=== PATIENT | female | born 1945 | race African-American/Black ===

== ENCOUNTER 2017-09-02 18:15 | Emergency (ER) | payer MEDICARE ==
--- NOTE | 2017-09-02 19:43 | Emergency Department Report ---
ED General Adult HPI - General Chief complaint: Dyspnea/Respdistress Stated complaint: CHOKING Time Seen by Provider: 09/02/17 18:31 Source: patient, outpatient clerk Mode of arrival: Ambulatory Limitations: Language Barrier - History of Present Illness Initial comments: This is a 71-year-old female who is known to this provider previously. She is accompanied by her and a friend, Mr. Carlos Rabago. The patient indicates that she would not like a formal [place] data center manager, and authorizes and requests that Mr. Rabago translate for her. Approximately 2 hours Prior to arrival, the patient was eating fish. Patient can't recall what type of fish she ate. She indicates that the fish got stuck in the left part of her throat. She indicates that she has pain. She indicates that she has difficulty swallowing. She cannot describe the nature of the pain, radiation, or the qualitative nature of the pain. She indicates the pain worsens when she attempts to swallow. She indicates no relieving factors. No other complaints. -: Sudden Location: neck Quality: other (per hpi) Consistency: other (per hpi) Improves with: other (per hpi) Worsens with: other (per hpi) Associated Symptoms: other (neck pain, difficulty swallowing) - Related Data Home Medications Medication Instructions Recorded Confirmed Last Taken Amlodipine Besylate 5 mg PO QDAY 05/24/16 05/24/16 Unknown Meclizine HCl [Meclizine CHEW] 25 mg PO QDAY 05/24/16 05/24/16 Unknown Meloxicam 15 mg PO QDAY 05/24/16 05/24/16 Unknown Ondansetron HCl 4 mg PO Q8HR 05/24/16 05/24/16 Unknown Allergies Allergy/AdvReac Type Severity Reaction Status Date / Time No Known Allergies Allergy Unverified 05/24/16 11:56 ED Review of Systems ROS: Stated complaint: CHOKING Other details as noted in HPI Constitutional: denies: fever ENT: throat pain. denies: congestion Respiratory: cough Cardiovascular: denies: syncope Gastrointestinal: denies: vomiting Genitourinary: as per HPI Musculoskeletal: as per HPI Skin: as per HPI Neurological: as per HPI Psychiatric: as per HPI, anxiety ED Past Medical Hx - Past Medical History Previous Medical History?: No Additional medical history: unable to assess - Surgical History Past Surgical History?: No Additional Surgical History: unable to assess - Social History Smoking Status: Unknown if ever smoked Substance Use Type: None - Medications Home Medications: Home Medications Medication Instructions Recorded Confirmed Last Taken Type Amlodipine Besylate 5 mg PO QDAY 05/24/16 05/24/16 Unknown History Meclizine HCl [Meclizine CHEW] 25 mg PO QDAY 05/24/16 05/24/16 Unknown History Meloxicam 15 mg PO QDAY 05/24/16 05/24/16 Unknown History Ondansetron HCl 4 mg PO Q8HR 05/24/16 05/24/16 Unknown History ED Physical Exam - General Limitations: Language Barrier General appearance: alert, in no apparent distress - Head Head exam: Present: atraumatic, normocephalic - Eye Eye exam: Present: normal appearance, EOMI. Absent: nystagmus - ENT ENT exam: Present: normal exam, normal orophraynx, mucous membranes moist, normal external ear exam, other (the patient is speaking in full sentences to the data center manager. There is no stridor or trismus.) - Neck Neck exam: Present: normal inspection, full ROM. Absent: tenderness, meningismus - Respiratory Respiratory exam: Present: normal lung sounds bilaterally. Absent: respiratory distress - Cardiovascular Cardiovascular Exam: Present: regular rate, normal rhythm, normal heart sounds. Absent: bradycardia, tachycardia, irregular rhythm, systolic murmur, diastolic murmur, rubs, gallop - GI/Abdominal GI/Abdominal exam: Present: soft, normal bowel sounds. Absent: distended, tenderness, guarding, rebound, rigid, pulsatile mass - Extremities Exam Extremities exam: Present: normal inspection, full ROM, normal capillary refill , other (2+ pulses noted in the bilateral upper, lower extremities. Compartments soft. No long bony tenderness. The pelvis is stable.). Absent: pedal edema, calf tenderness - Back Exam Back exam: Present: normal inspection, full ROM. Absent: paraspinal tenderness , vertebral tenderness - Neurological Exam Neurological exam: Present: alert, other (there is no facial droop. The tongue is midline. Extraocular movements are intact bilaterally. Speaking in full sentences. 5 out of 5 strength upper, lower extremities bilaterally.) - Psychiatric Psychiatric exam: Present: anxious - Skin Skin exam: Present: warm, dry, intact, normal color. Absent: rash ED Course Vital Signs 09/02/17 09/02/1709/02/18 18:25 18:30 18:45 Temperature Pulse Rate 113 H 86 82 Respiratory 16 15 15 Rate Blood Pressure 156/84 134/63 138/69 Blood Pressure [Left] O2 Sat by Pulse 97 96 96 Oximetry 09/02/17 09/02/17 09/02/17 19:00 19:15 19:30 Temperature Pulse Rate 79 Respiratory 16 Rate Blood Pressure 127/62 142/75 148/76 Blood Pressure [Left] O2 Sat by Pulse 96 98 99 Oximetry 09/02/17 09/02/17 09/02/17 19:46 20:00 20:15 Temperature 97.6 F Pulse Rate 85 Respiratory 16 Rate Blood Pressure 169/73 169/73 133/69 Blood Pressure 124/77 [Left] O2 Sat by Pulse 98 98 98 Oximetry 09/02/17 09/02/17 09/02/17 20:30 20:48 21:00 Temperature Pulse Rate Respiratory Rate Blood Pressure 133/74 133/69 131/80 Blood Pressure [Left] O2 Sat by Pulse 100 100 93 Oximetry 09/02/17 09/02/17 09/02/17 21:15 21:30 21:46 Temperature Pulse Rate Respiratory Rate Blood Pressure 134/79 130/71 139/81 Blood Pressure [Left] O2 Sat by Pulse 99 97 96 Oximetry - Reevaluation(s) Reevaluation #1: 09/02/17 19:42 Differential diagnosis, including but not limited to: Foreign body in throat, fish bone, hypopharyngeal irritation Assessment and plan: 71-year-old female who is non-Mohawk speaking, we have a data center manager translating for her, who presents with complaints of fish bone in the lateral aspect of her throat. She speaks in her [place] tongue to the data center manager, and has no evidence of imminent airway collapse. There is no stridor. Plain film of the neck demonstrates no obvious retained foreign body. Patient would benefit from ENT consultation/evaluation. This hospital does not have otolaryngology available for consultation. We will transfer her to a hospital that can provide this service. Patient has a potential emergent medical issue which cannot be definitively managed at this hospital, therefore, will benefit from transfer. This was explained to the patient and her using a data center manager both of whom verbalized understanding according to the data center manager. 09/02/17 19:43 Reevaluation #2: 09/02/17 22:15 Case is discussed with otolaryngology accountant controller at [facility], Amy Ryena, he accepts the patient as an ER to ER transfer to the [facility]. Family is informed. ED Medical Decision Making - Radiology Data Radiology results: image reviewed interpreted by me: Soft tissue x-ray of the neck demonstrates no obvious foreign body. Critical care attestation.: If time is entered above; I have spent that time in minutes in the direct care of this critically ill patient, excluding procedure time. ED Disposition Clinical Impression: Globus sensation Disposition: DC/TX-02 [facility] Is pt being admited?: No Does the pt Need Aspirin: No Condition: Good Referrals: PRIMARY CARE, [Primary Care Provider] - 3-5 Days
[2017-09-02] MEDS ORDERED: LIDOCAINE VISCOUS 2% PO ONE (20:39)
--- NOTE | 2017-09-02 21:16 | XRay Report ---
FINAL REPORT PROCEDURE: XR NECK SOFT TISSUE TECHNIQUE: Soft tissue neck radiographs, 2 views, including AP and lateral. CPT 83072 HISTORY: choking/pt states bone stuck in throat COMPARISON: No prior studies are available for comparison. FINDINGS: Bone mineralization: Normal. Alignment: Normal. Soft tissues: Epiglottis and hypopharyngeal soft tissues normal. Foreign bodies: There are calcifications of the thyroid cartilage. No definite foreign body is seen. If symptoms persist, CT may be helpful. IMPRESSION: There is no acute soft tissue abnormality. The airway appears patent and midline. There are calcifications of the thyroid cartilage. No definite foreign body is seen. If symptoms persist, CT may be helpful.
[2017-09-03 00:25] VITALS: BP 130/87
== END 2017-09-02 23:50 | disposition short-term general hospital (02) ==
LOC: ED 18:15
DX: T17.228A Food in pharynx causing other injury, initial encounter (principal); X58.XXXA Exposure to other specified factors, initial encounter; Y93.89 Activity, other specified; Y99.8 Other external cause status; Y92.89 Other specified places as the place of occurrence of the external cause
CPT/HCPCS: 70360

== ENCOUNTER 2018-03-11 11:21 | Emergency (ER) | payer MEDICARE ==
[2018-03-11 12:06] LABS: Hematocrit 38.5 % (30.3-42.9); Hemoglobin 12.7 gm/dl (10.1-14.3); Mean Corpuscular HGB Conc 33 % (30-34); Mean Corpuscular Volume 87 fl (79-97); Platelet Count 315 K/mm3 (140-440); Red Blood Count 4.44 M/mm3 (3.65-5.03); Red Cell Distribution Width 14.2 % (13.2-15.2)
[2018-03-11 12:22] LABS: BUN/Creatinine Ratio 17; Blood Urea Nitrogen 15 mg/dL (7-17); Calcium 9.2 mg/dL (8.4-10.2); Hemolysis Index 25
--- NOTE | 2018-03-11 12:26 | Cat Scan Report ---
CT HEAD WITHOUT CONTRAST: HISTORY: Head pain, blurred vision. TECHNIQUE: Sequential 2.5mm CT images. COMPARISON: none. FINDINGS: Cerebral Parenchyma: Within normal limits. Cerebellum: Within normal limits. Brainstem: Within normal limits. Ventricles: Normal. Sella: Normal. Extra-axial spaces: Normal. Basal Cisterns: Normal. Intracranial Hemorrhage: None. Midline Shift: None. Calvarium: Normal. Sinuses: There is mild fluid or mucosal thickening in the ethmoid air cells and right frontal sinus. Mastoid Air Cells: Normal. Visualized Orbits: Normal. IMPRESSION: Cranial CT scan within normal limits. Mild sinus disease as described, likely chronic.
[2018-03-11] MEDS ORDERED: IBUPROFEN PO ONE (12:39)
--- NOTE | 2018-03-11 13:08 | Emergency Department Report ---
ED Headache HPI - General Chief Complaint: Headache Stated Complaint: WEAK/COLD/DIZZY/PAIN Time Seen by Provider: 03/11/18 12:26 - History of Present Illness Initial Comments: This is a 72-year-old female nontoxic, well nourished in appearance, no acute signs of distress presents to the ED with c/o of acute on chronic intermittent headaches. Patient describes headache as diffuse with level of 8 out of 10. Patient also stated has some dizziness with blurry vision and weakness. Patient denies thunderclap headache. Patient denies any radiation of pain. Patient denies any head trauma. Patient denies any visual changes. Patient denies worse headache. Patient stated that darkness makes headache better and bright lights make the headache worse. Patient denies any numbness, tingling, fever, chills, nausea, vomiting, chest pain, shortness of breath, stiff neck. Patient denies any facial drooping or one sided weakness. Patient denies any radiation of pain. Patient denies any allergies. Patients family member is present during exam, interview, and physical history for translation purposes. Timing/Duration: episodic Quality: mild, achy Head Injury Location: other (diffuse) Recent Head Trauma: no recent headache/trauma, occasional headaches Associated Symptoms: denies symptoms. denies: confusion, fatigue, facial pain, fever/chills, flushing, loss of consciousness, nausea/vomiting, nasal congestion, nasal drainage, numbness in legs/feet, rash, seizures, sinus infection, stiff neck, vision changes, weakness Allergies/Adverse Reactions: Allergies No Known Allergies Allergy (Unverified 05/24/16 11:56) Home Medications: Ambulatory Orders Amlodipine Besylate 5 mg PO QDAY 05/24/16 Acetaminophen [Tylenol] 650 mg PO PRN PRN 03/11/18 Amitriptyline [Elavil] 25 mg PO QHS 03/11/18 Cyproheptadine [Periactin] 4 mg PO DAILY 03/11/18 Gabapentin [Neurontin] 100 mg PO BID 03/11/18 Ibuprofen [Motrin] 600 mg PO Q8H PRN #10 tablet 03/11/18 Omeprazole 40 mg PO PRN PRN 03/11/18 traZODone [Desyrel] 50 mg PO QHS 03/11/18 ED Review of Systems ROS: Stated complaint: WEAK/COLD/DIZZY/PAIN Other details as noted in HPI Constitutional: denies: chills, fever Eyes: denies: eye pain, eye discharge, vision change ENT: denies: ear pain, throat pain Respiratory: denies: cough, shortness of breath, wheezing Cardiovascular: denies: chest pain, palpitations Endocrine: no symptoms reported Gastrointestinal: denies: abdominal pain, nausea, diarrhea Genitourinary: denies: urgency, dysuria, discharge Musculoskeletal: denies: back pain, joint swelling, arthralgia Skin: denies: rash, lesions Neurological: headache, weakness. 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 - Surgical History Additional Surgical History: unable to assess - Social History Smoking Status: Never Smoker Substance Use Type: None - Medications Home Medications: Home Medications Medication Instructions Recorded Confirmed Last Taken Type Amlodipine Besylate 5 mg PO QDAY 05/24/16 03/11/18 Unknown History Acetaminophen [Tylenol] 650 mg PO PRN PRN 03/11/18 03/11/18 Unknown History Amitriptyline [Elavil] 25 mg PO QHS 03/11/18 03/11/18 Unknown History Cyproheptadine [Periactin] 4 mg PO DAILY 03/11/18 03/11/18 Unknown History Gabapentin [Neurontin] 100 mg PO BID 03/11/18 03/11/18 Unknown History Ibuprofen [Motrin] 600 mg PO Q8H PRN #10 tablet 03/11/18 Unknown Rx Omeprazole 40 mg PO PRN PRN 03/11/18 03/11/18 Unknown History traZODone [Desyrel] 50 mg PO QHS 03/11/18 03/11/18 Unknown History ED Physical Exam - General Limitations: Language Barrier General appearance: alert, in no apparent distress - Head Head exam: Present: atraumatic, normocephalic - Eye Eye exam: Present: normal appearance - Neck Neck exam: Present: normal inspection, full ROM. Absent: tenderness, meningismus, lymphadenopathy - Cardiovascular Cardiovascular Exam: Present: regular rate, normal rhythm, normal heart sounds. Absent: bradycardia, tachycardia, irregular rhythm, systolic murmur, diastolic murmur, rubs, gallop - Extremities Exam Extremities exam: Present: normal inspection, full ROM - Back Exam Back exam: Present: normal inspection, full ROM. Absent: tenderness, CVA tenderness (R), CVA tenderness (L), muscle spasm, paraspinal tenderness, vertebral tenderness, rash noted - Neurological Exam Neurological exam: Present: alert, oriented X3, normal gait - Expanded Neurological Exam Expanded Patient oriented to: Present: person, place, time Cranial nerves: EOM's Intact: Normal, Facial Sensation: Normal Cerebellar function: Finger to Nose: Normal Upper motor neuron: Pronator Drift: Normal, Sensory Extinction: Normal Sensory exam: Upper Extremity Light Touch: Normal, Upper Extremity Pin Prick: Normal, Upper Extremity Temperature: Normal, Lower Extremity Light Touch: Normal, Lower Extremity Pin Prick: Normal, Lower Extremity Temperature: Normal Motor strength exam: RUE: 5, LUE: 5, RLE: 5, LLE: 5 Best Eye Response (Tricia): (4) open spontaneously Best Motor Response (Veteran): (6) obeys commands Best Verbal Response (Veteran): (5) oriented Veteran Total: 15 - Psychiatric Psychiatric exam: Present: normal affect, normal mood - Skin Skin exam: Present: warm, dry, intact, normal color. Absent: rash ED Course Vital Signs 03/11/18 03/11/18 11:30 12:54 Temperature 97.5 F L Pulse Rate 87 Respiratory 18 16 Rate Blood Pressure 141/79 O2 Sat by Pulse 97 Oximetry - Reevaluation(s) Reevaluation #1: 03/11/18 13:06 Patient is speaking in full sentences with no signs of distress noted. ED Medical Decision Making - Lab Data Result diagrams: 03/11/18 11:53 03/11/18 11:53 - Medical Decision Making This is a 72-year-old female that presents with headache. Patient is stable and was examined by me. Patient is neurologically stable. There is no stiff neck or neck pain. Vital signs are stable. Patient is afebrile. Patient received Motrin which the patient stated that headache has subsided and resolved. Labs unremarkable. CT unremarkable and dictated by the radiologist. Patient is notified of the results with no questions noted by the patient. Patient was referred to Follow-up with a primary care/neurologist doctor in 3-5 days or if symptoms worsen and continue return to emergency room as soon as possible. At time of discharge, the patient does not seem toxic or ill in appearance. No acute signs of distress noted. Patient agrees to discharge treatment plan of care. No further questions noted by the patient. Critical care attestation.: If time is entered above; I have spent that time in minutes in the direct care of this critically ill patient, excluding procedure time. ED Disposition Clinical Impression: Headache Qualifiers: Headache type: unspecified Headache chronicity pattern: episodic headache Intractability: not intractable Qualified Code(s): R51 - Headache Disposition: DC-01 TO HOME OR SELFCARE Is pt being admited?: No Does the pt Need Aspirin: No Condition: Stable Instructions: Acute Headache (ED) Additional Instructions: Follow-up with a primary care/neurologist doctor in 3-5 days or if symptoms worsen and continue return to emergency room as soon as possible. Prescriptions: Ibuprofen [Motrin] 600 mg PO Q8H PRN #10 tablet PRN Reason: Pain Referrals: PRIMARY MD SHELLEY [Referring] - 3-5 Days LIYAH SANCHEZ MD [Staff Physician] - 3-5 Days ADALBERTO AGUIRRE MD [Staff Physician] - 3-5 Days [facility] [Outside] - 3-5 Days
[2018-03-11 13:25] VITALS: BP 140/71
== END 2018-03-11 13:23 | disposition home or self-care (01) ==
LOC: ED 11:21
DX: R51 Headache (principal); R42 Dizziness and giddiness; H53.8 Other visual disturbances; I10 Essential (primary) hypertension; M19.90 Unspecified osteoarthritis, unspecified site
CPT/HCPCS: 36415; 70450; 80048; 85027